=== PATIENT | male | born 1950 | race Caucasian/White ===

== ENCOUNTER 2017-07-24 09:59 | Day surgery (SDC) | payer MEDICARE, OTHER ==
[~2017-07-24] VITALS: Ht 172.7 cm; Wt 115.3 kg
[2017-07-24 09:57] LABS: Prothrombin Time Results 10.4 Sec (9.7-11.5)
[~2017-07-24 09:59] MED LIST: ALBU8HFA2 INH; ALBU90OI; ALBU90OI INH; ALFU10; ALLO100; ALLO100 PO; AMLO5 PO; ASPI81CH; AZAT50 PO; AZIT250; AZIT250 PO; Allopurinol100 MG PO; Aspirin EC81 MG; BECLNI16.8 INH; BENADRYL25 MG PO; BREO ELLIPTA 11 EACH; BUME1; BUME2; BUME2 PO; BYETTA; CALCAVITD PO; CALCAVITDA PO; CHOL10002; CYCL0.05OP; Cialis2.5 MG; DOXE0.5; DOXE0.5 PO; ENOX40I SC; EPLE25; EPLE25 PO; FLUO.1OPSO BOTHEYES; FLUT.05NI; Flonase 0.05% N16 GM; Flovent 110 MCG12 GM; GABA300; GABA300 PO; GLIM2; GLIP5; GLIP5 PO; HYDACE10B; HYDACE10B PO; HYDMOR2 PO; HYDSUL200; Hydrochlorothia50 MG PO; Hydroxychloroq200 MG PO; INSLI100I; INSLI100I SC; INSLI100I SUBQ; INSULANI SC; INSULANI SUBQ; INSULANPEN; ISOD40ER PO; K-Dur 20 meq T20 MEQ PO; K-Dur20 MEQ; LISI20; LIVALO2 MG PO; LOTE.5SUSP; LUMIGAN2.5 ML; Lasix40 MG; MAGCHL64ER PO; MELA3; MELA3 PO; METF500; METF500C; METO2.5 PO; MYCOPHENOLATE500 MG PO; Metoclopramide H5 MG; Mucinex1200 MG; NAPR220; NAPR220 PO; NAPR500 PO; Norco 10-325 T1 EACH; Novolog Fl100 UNIT/1; OMEP20ER PO; OMEP40CA12 PO; OXYACE7.5T PO; OXYC5 PO; Omeprazole20 M1; POTA20PAC; POTCHL20ER PO; PRAV20 PO; PRED1; PRED10 PO; PRED5; PRED5 PO; PREVASTATIN PO; PROM25 PO; PSEU120ER; Pravachol40 MG; Pred Forte1 ML; Prednisone5 MG PO; QVAR7.3 G1; QVAR7.3 G1 INH; RAMI2.5; RAMI2.5 PO; ROSU10TA; RXPROM25 PO; RXSULTRIDS PO; Rituxan10 MG/ML; SILDENAFIL20 MG PO; SPIR25 PO; SULFAMETHOXAZOLE-TMP; SULTRIDS PO; SYSTANE BALANCE10 ML; Sulfamethoxazo1 EAC4; Sulfamethoxazo1 EAC4 PO; TADA10TA; TARKA; TRAM50 PO; VERA240ER; Voltaren100 GM; [UNRECOGNIZED DRUG - OTHER]
== END 2017-07-24 13:01 | disposition home or self-care (01) ==
LOC: ORSCSDS 09:59
PROVIDERS: Internal Medicine Gastroenterology
PROC: 0D758ZZ Dilation of Esophagus, Via Natural or Artificial Opening Endoscopic (ICD-10-PCS; principal; 2017-07-24 12:00)
DX: R13.10 Dysphagia, unspecified (principal); K74.60 Unspecified cirrhosis of liver; K44.9 Diaphragmatic hernia without obstruction or gangrene; E78.5 Hyperlipidemia, unspecified; G47.33 Obstructive sleep apnea (adult) (pediatric); E11.9 Type 2 diabetes mellitus without complications; J45.909 Unspecified asthma, uncomplicated; N18.3 Chronic kidney disease, stage 3 (moderate); G47.30 Sleep apnea, unspecified; Z87.891 Personal history of nicotine dependence; K21.9 Gastro-esophageal reflux disease without esophagitis; Z79.4 Long term (current) use of insulin; Z79.899 Other long term (current) drug therapy
CPT/HCPCS: 36415; 82105; 82947; 85610; J2250; J7120

== ENCOUNTER → 2017-08-18 | Outpatient (CLI) | payer MEDICARE, OTHER ==
[2017-08-19 10:27] LABS: Protein, Urine Quantitative 44.4 mg/dL (0.0-11.9)
== END ==
LOC: LAB SHORT 07:55 → OLS 07:55
PROVIDERS: Internal Medicine Nephrology
DX: N18.3 Chronic kidney disease, stage 3 (moderate) (principal); D63.1 Anemia in chronic kidney disease; N25.81 Secondary hyperparathyroidism of renal origin; E55.9 Vitamin D deficiency, unspecified; E78.00 Pure hypercholesterolemia, unspecified; R76.9 Abnormal immunological finding in serum, unspecified; R94.5 Abnormal results of liver function studies; R94.6 Abnormal results of thyroid function studies
CPT/HCPCS: 81050; 82043; 84156

== ENCOUNTER 2017-12-18 11:33 | Day surgery (SDC) | payer MEDICARE, OTHER ==
[~2017-12-18] VITALS: Ht 172.7 cm; Wt 114.8 kg
== END 2017-12-18 14:05 | disposition home or self-care (01) ==
LOC: ORSCSDS 11:33
PROVIDERS: Ophthalmology
PROC: 08RJ3JZ Replacement of Right Lens with Synthetic Substitute, Percutaneous Approach (ICD-10-PCS; principal; 2017-12-18 13:30)
DX: H25.11 Age-related nuclear cataract, right eye (principal); E11.36 Type 2 diabetes mellitus with diabetic cataract; E11.22 Type 2 diabetes mellitus with diabetic chronic kidney disease; I12.9 Hypertensive chronic kidney disease with stage 1 through stage 4 chronic kidney disease, or unspecified chronic kidney disease; N18.9 Chronic kidney disease, unspecified; E78.5 Hyperlipidemia, unspecified; G47.33 Obstructive sleep apnea (adult) (pediatric); K75.81 Nonalcoholic steatohepatitis (NASH); Z87.891 Personal history of nicotine dependence; Z79.4 Long term (current) use of insulin; Z79.899 Other long term (current) drug therapy
CPT/HCPCS: 82947; J2250; J3010; J7120; V2632

== ENCOUNTER 2018-08-06 08:36 | Day surgery (SDC) | payer MEDICARE, OTHER ==
[~2018-08-06] VITALS: Ht 172.7 cm; Wt 115.9 kg
[~2018-08-06 08:36] MED LIST changes: +ACETAMINOPHEN500 MG PO; +ALKA-SELTZER D1 EACH PO; +BREO ELLIPTA 11 EACH INH; +CALCIUM + D3 E1 EACH PO; +CALCIUM 1,0001 EACH PO; +CYCL0.05OP BOTHEYES; +Cialis2.5 MG PO; +FLONASE SENSIM5.9 ML NS; +GABA600 PO; +GLIP10 PO; +HYDSUL200 PO; +INSULANPEN SC; +LOTEMAX3.5 GM BOTHEYES; +LOTEMAX3.5 GM IO; +LUMIGAN2.5 ML BOTHEYES; +METO5 PO; +NASACORT10.8 ML; +NEOPOLBACB; +NOVOLOG FL100 UNIT/1 SC; +Neurontin 300300 MG PO; +Norco 10-325 T1 EACH PO; +Novolog100 UNIT/1 SQ; +Omeprazole20 M1 PO; +PRED1 PO; +SILD50TA PO; +SYSTANE BALANCE10 ML OP; +VITAMIN B12-FO1 EACH PO; +VOLTAREN100 GM TOP; +ZOLP5 PO; +Zegerid 40 MG1 EACH PO; +Zocor20 MG PO
== END 2018-08-06 10:07 | disposition home or self-care (01) ==
LOC: ORSCSDS 08:36
PROVIDERS: Internal Medicine Gastroenterology
PROC: 0DJ08ZZ Inspection of Upper Intestinal Tract, Via Natural or Artificial Opening Endoscopic (ICD-10-PCS; principal; 2018-08-06 09:45)
DX: I85.00 Esophageal varices without bleeding (principal); K75.81 Nonalcoholic steatohepatitis (NASH); K74.60 Unspecified cirrhosis of liver; E11.22 Type 2 diabetes mellitus with diabetic chronic kidney disease; I12.9 Hypertensive chronic kidney disease with stage 1 through stage 4 chronic kidney disease, or unspecified chronic kidney disease; N18.3 Chronic kidney disease, stage 3 (moderate); E78.5 Hyperlipidemia, unspecified; K21.9 Gastro-esophageal reflux disease without esophagitis; J45.909 Unspecified asthma, uncomplicated; G47.33 Obstructive sleep apnea (adult) (pediatric); Z87.891 Personal history of nicotine dependence; Z79.4 Long term (current) use of insulin; Z79.899 Other long term (current) drug therapy
CPT/HCPCS: 82947; J2704; J7120

== ENCOUNTER 2020-02-03 10:38 | Day surgery (SDC) | payer MEDICARE, OTHER ==
[~2020-02-03] VITALS: Ht 172.7 cm; Wt 106.5 kg
[~2020-02-03 10:38] MED LIST changes: +BASAGLAR K100 UNIT/1; +Bumetanide2 MG PO; +EZET10; +EZET10 PO; +NOVOLOG100 UNIT/3 SQ; +Norco 5-325 Ta1 EACH PO; +VICTOZA 2-0.6 MG/0.1 SC
[2020-02-03] MEDS ORDERED: SULTRISS (11:17)
== END 2020-02-03 13:15 | disposition home or self-care (01) ==
LOC: ORSCSDS 10:38
PROVIDERS: Internal Medicine Gastroenterology
PROC: 0DBN8ZX Excision of Sigmoid Colon, Via Natural or Artificial Opening Endoscopic, Diagnostic (ICD-10-PCS; principal; 2020-02-03 12:00)
PROC: 0DBL8ZX Excision of Transverse Colon, Via Natural or Artificial Opening Endoscopic, Diagnostic (ICD-10-PCS; principal; 2020-02-03 12:00)
PROC: 0DB58ZX Excision of Esophagus, Via Natural or Artificial Opening Endoscopic, Diagnostic (ICD-10-PCS; principal; 2020-02-03 12:00)
PROC: 0DBK8ZX Excision of Ascending Colon, Via Natural or Artificial Opening Endoscopic, Diagnostic (ICD-10-PCS; principal; 2020-02-03 12:00)
DX: K74.60 Unspecified cirrhosis of liver (principal); Z13.810 Encounter for screening for upper gastrointestinal disorder; K21.9 Gastro-esophageal reflux disease without esophagitis; Z86.010 Personal history of colon polyps; K76.6 Portal hypertension; K31.89 Other diseases of stomach and duodenum; D12.2 Benign neoplasm of ascending colon; D12.3 Benign neoplasm of transverse colon; D12.5 Benign neoplasm of sigmoid colon; B37.81 Candidal esophagitis; K44.9 Diaphragmatic hernia without obstruction or gangrene; K57.30 Diverticulosis of large intestine without perforation or abscess without bleeding; K64.4 Residual hemorrhoidal skin tags; I10 Essential (primary) hypertension; E78.5 Hyperlipidemia, unspecified; E11.9 Type 2 diabetes mellitus without complications; G47.33 Obstructive sleep apnea (adult) (pediatric); N18.30 Chronic kidney disease, stage 3 unspecified; J45.909 Unspecified asthma, uncomplicated; Z87.891 Personal history of nicotine dependence; Z79.4 Long term (current) use of insulin; Z79.899 Other long term (current) drug therapy
CPT/HCPCS: 82947; 88305; 88342; J2704; J7120

== ENCOUNTER 2021-03-02 08:21 | Day surgery (SDC) | payer MEDICARE, OTHER ==
[~2021-03-02] VITALS: Ht 172.7 cm; Wt 98.7 kg
[~2021-03-02 08:21] MED LIST changes: +SULTRISS
[2021-03-02] MEDS ORDERED: NOVOLIN R100 UNIT/2 (09:31)
[2021-03-02] MEDS ORDERED: OXYB5 (09:34)
== END 2021-03-02 11:49 | disposition home or self-care (01) ==
LOC: ORSCSDS 08:21
DX: Z12.11 Encounter for screening for malignant neoplasm of colon (principal); D12.2 Benign neoplasm of ascending colon; D12.3 Benign neoplasm of transverse colon; K57.30 Diverticulosis of large intestine without perforation or abscess without bleeding; K64.4 Residual hemorrhoidal skin tags; Z86.010 Personal history of colon polyps; K74.60 Unspecified cirrhosis of liver; Z13.810 Encounter for screening for upper gastrointestinal disorder; G47.33 Obstructive sleep apnea (adult) (pediatric); E78.5 Hyperlipidemia, unspecified; E11.22 Type 2 diabetes mellitus with diabetic chronic kidney disease; I12.9 Hypertensive chronic kidney disease with stage 1 through stage 4 chronic kidney disease, or unspecified chronic kidney disease; N18.30 Chronic kidney disease, stage 3 unspecified; Z87.891 Personal history of nicotine dependence; Z79.4 Long term (current) use of insulin; Z79.899 Other long term (current) drug therapy
CPT/HCPCS: 82947; 88305; J2001; J2704; J7120

== ENCOUNTER → 2021-08-31 | Outpatient (CLI) | payer MEDICARE ==
[~2021-08-31] MED LIST changes: +NOVOLIN R100 UNIT/2; +OXYB5
[2021-08-31 19:45] LABS: Creatinine Urine 33.1 mg/dL (27.00-270.00); Protein, Urine Quantitative 115.3 mg/dL (0.0-11.9)
== END | disposition home or self-care (01) ==
LOC: LAB 15:00 → LAB SHORT 15:00
PROVIDERS: Internal Medicine Nephrology
DX: N18.30 Chronic kidney disease, stage 3 unspecified (principal); D63.1 Anemia in chronic kidney disease; E83.51 Hypocalcemia; N25.81 Secondary hyperparathyroidism of renal origin; E78.00 Pure hypercholesterolemia, unspecified; R76.9 Abnormal immunological finding in serum, unspecified; R94.5 Abnormal results of liver function studies; R94.6 Abnormal results of thyroid function studies
CPT/HCPCS: 81050; 82043; 82570; 84156

== ENCOUNTER 2022-03-08 09:12 | Day surgery (SDC) | payer MEDICARE ==
[~2022-03-08] VITALS: Ht 167.6 cm; Wt 106.7 kg
--- NOTE | 2022-03-08 11:32 | NUR ---
03/08/22 [address] GUTIERRES; SEE ANETHESIA RECORDS.
--- NOTE | 2022-03-08 14:20 | NUR ---
Discharge instructions reviewed with patient. Patient verbalizes understanding. Copy given to patient to take home. Discharged via wheelchair to private car for ride home. Patient States Post-Procedure ride home has been arranged.
== END 2022-03-08 22:53 | disposition home or self-care (01) ==
LOC: ORSCMMR 09:12 → ORSCSDS 10:15 → ORSCMMR 22:53
PROVIDERS: Internal Medicine Gastroenterology
PROC: 0DJ08ZZ Inspection of Upper Intestinal Tract, Via Natural or Artificial Opening Endoscopic (ICD-10-PCS; principal; 2022-03-08 11:00)
PROC: 0DBL8ZX Excision of Transverse Colon, Via Natural or Artificial Opening Endoscopic, Diagnostic (ICD-10-PCS; principal; 2022-03-08 11:00)
DX: Z12.11 Encounter for screening for malignant neoplasm of colon (principal); D12.3 Benign neoplasm of transverse colon; Z13.810 Encounter for screening for upper gastrointestinal disorder; K74.60 Unspecified cirrhosis of liver; K75.81 Nonalcoholic steatohepatitis (NASH); K31.84 Gastroparesis; Z86.010 Personal history of colon polyps; K57.30 Diverticulosis of large intestine without perforation or abscess without bleeding; K64.8 Other hemorrhoids; I12.9 Hypertensive chronic kidney disease with stage 1 through stage 4 chronic kidney disease, or unspecified chronic kidney disease; E11.22 Type 2 diabetes mellitus with diabetic chronic kidney disease; N18.4 Chronic kidney disease, stage 4 (severe); Z79.4 Long term (current) use of insulin; E11.40 Type 2 diabetes mellitus with diabetic neuropathy, unspecified; G47.33 Obstructive sleep apnea (adult) (pediatric); Z87.891 Personal history of nicotine dependence; J45.909 Unspecified asthma, uncomplicated; Z79.899 Other long term (current) drug therapy; F32.A Depression, unspecified; E66.9 Obesity, unspecified; Z68.38 Body mass index [BMI] 38.0-38.9, adult
CPT/HCPCS: 82947; 88305; J2704; J7120

== ENCOUNTER → 2022-03-24 | Outpatient (CLI) | payer MEDICARE ==
[2022-03-25 20:12] LABS: Protein, Urine Quantitative 249.2 mg/dL (0.0-11.9)
== END | disposition home or self-care (01) ==
LOC: LAB SHORT 08:00
PROVIDERS: Internal Medicine Nephrology
DX: N18.30 Chronic kidney disease, stage 3 unspecified (principal); D63.1 Anemia in chronic kidney disease; N25.81 Secondary hyperparathyroidism of renal origin; E55.9 Vitamin D deficiency, unspecified; E78.00 Pure hypercholesterolemia, unspecified; R76.9 Abnormal immunological finding in serum, unspecified; R94.5 Abnormal results of liver function studies; R94.6 Abnormal results of thyroid function studies
CPT/HCPCS: 81050; 82043; 82570; 84156

== ENCOUNTER 2022-04-09 16:43 | Inpatient (IN) | payer MEDICARE ==
[~2022-04-09] VITALS: Ht 172.7 cm; Wt 102.9 kg
[2022-04-09 17:05] LABS: Calcium, Ionized (POC) 1.23 mmol/L (1.10-1.46); Chloride (POC) 112 mmol/L (98-108); Creatinine (POC) 1.7 mg/dL (0.8-1.3); Glucose (ISTAT POC) 331 mg/dL (70-99); Hemoglobin (POC) 13.9 g/dL (13.5-17.5); Potassium (POC) 5.8 mmol/L (3.5-5.5); Sodium (POC) 138 mmol/L (135-148); Total CO2 (POC) 18 mmol/L (21-32)
[2022-04-09 17:15] LABS: BASOPHILS ABSOLUTE AUTO 0.07 K/mm3 (0.00-0.23); BASOPHILS PERCENT AUTO 1 % (0-2); EOSINOPHILS ABSOLUTE AUTO 0.04 K/mm3 (0.00-0.68); EOSINOPHILS PERCENT AUTO 0 % (0-6); Hematocrit 40.4 % (37.0-53.0); Hemoglobin 13.5 g/dL (13.5-17.5); IMMATURE GRAN ABSOLUTE AUTO 0.09 K/mm3 (0.00-0.10); IMMATURE GRAN PERCENT AUTO 1 % (0-1); LYMPHOCYTES ABSOLUTE AUTO 2.42 K/mm3 (0.84-5.20); LYMPHOCYTES PERCENT AUTO 25 % (21-46); MONOCYTES ABSOLUTE AUTO 0.55 K/mm3 (0.16-1.47); MONOCYTES PERCENT AUTO 6 % (4-13); Mean Corpuscular HGB 31.2 pg (26.0-34.0); Mean Corpuscular HGB Conc 33.4 g/dL (31.5-36.5); Mean Corpuscular Volume 93 fL (80-100); Mean Platelet Volume 9.8 fL (9.1-12.4); NEUTROPHILS ABSOLUTE AUTO 6.53 K/mm3 (1.96-9.15); NEUTROPHILS PERCENT AUTO 67 % (41-73); Platelet Count 435 K/mm3 (150-400); RDW Coefficient Variation 14.6 % (11.7-14.2); RDW Standard Deviation 49.6 fL (35.1-46.3); Red Blood Cell Count 4.33 M/mm3 (4.30-5.90)
[2022-04-09 17:30] LABS: Calcium, Ionized (POC) 1.47 mmol/L (1.10-1.46); Chloride (POC) 111 mmol/L (98-108); Creatinine (POC) 1.7 mg/dL (0.8-1.3); Glucose (ISTAT POC) 438 mg/dL (70-99); Hemoglobin (POC) 12.9 g/dL (13.5-17.5); Potassium (POC) 6.4 mmol/L (3.5-5.5); Sodium (POC) 136 mmol/L (135-148); Total CO2 (POC) 19 mmol/L (21-32)
[2022-04-09 17:34] LABS: Free Thyroxine 0.8 ng/dL (0.70-1.60); Magnesium, Blood 1.5 mg/dL (1.6-2.4)
[2022-04-09 17:37] LABS: Albumin, Blood 2.9 g/dL (3.4-5.0); Albumin/Globulin Ratio 0.8 (0.8-1.8); Bilirubin, Total 0.4 mg/dL (0.1-1.0); Bun/Creatinine Ratio 23.3 (12.0-20.0); Calcium, Blood 9.4 mg/dL (8.5-10.1); Creatinine, Blood 1.59 mg/dL (0.60-1.20); Globulin, Blood 3.5 g/dL (2.2-4.0); Potassium, Blood 5.8 mmol/L (3.5-5.5); Thyroid Stimulating Hormone 1.16 uIU/mL (0.360-4.800); Total Protein, Blood 6.4 g/dL (6.4-8.2)
[2022-04-09] MEDS ORDERED: GABA300 PO (18:59)
[2022-04-09] MEDS ORDERED: GABAPENTIN600 MG PO (18:59)
[2022-04-09] MEDS ORDERED: KERENDIA10 MG PO (19:00)
[2022-04-09 20:59] LABS: Bun/Creatinine Ratio 21.5 (12.0-20.0); Calcium, Blood 9.4 mg/dL (8.5-10.1); Creatinine, Blood 1.35 mg/dL (0.60-1.20)
[2022-04-09 21:11] LABS: Potassium, Blood 3.7 mmol/L (3.5-5.5)
[2022-04-09] MEDS ORDERED: CALC.25 PO (22:24)
[2022-04-09] MEDS ORDERED: [UNRECOGNIZED DRUG - OTHER] PO (22:25)
[2022-04-10 01:37] LABS: Bun/Creatinine Ratio 20.8 (12.0-20.0); Calcium, Blood 10.7 mg/dL (8.5-10.1); Creatinine, Blood 1.59 mg/dL (0.60-1.20); Potassium, Blood 4.3 mmol/L (3.5-5.5)
--- NOTE | 2022-04-10 05:20 | NUR ---
New ER admit, A/Ox4 and slightly [place]. 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 No episodes of bradycardia, syncopy or CP/pressure. VSS on RA. 1+ pitting edema to ble. Patient reports some urinary incontinence and requested condom cath, which is draining clear/yellow urine. No acute changes. Will report to david YE.
[2022-04-10 05:50] LABS: Bun/Creatinine Ratio 19.4 (12.0-20.0); Creatinine, Blood 1.55 mg/dL (0.60-1.20); Magnesium, Blood 1.8 mg/dL (1.6-2.4); Potassium, Blood 3.8 mmol/L (3.5-5.5)
== END 2022-04-10 14:47 | disposition home or self-care (01) | DRG 641 ==
LOC: ER 16:43 → PCU 22:03
PROVIDERS: Student in an Organized Health Care Education/Training Program; ADMIT Internal Medicine
DX: E87.5 Hyperkalemia (principal); I13.0 Hypertensive heart and chronic kidney disease with heart failure and stage 1 through stage 4 chronic kidney disease, or unspecified chronic kidney disease; M31.30 Wegener's granulomatosis without renal involvement; I50.20 Unspecified systolic (congestive) heart failure; N17.9 Acute kidney failure, unspecified; I44.2 Atrioventricular block, complete; R00.1 Bradycardia, unspecified; E11.22 Type 2 diabetes mellitus with diabetic chronic kidney disease; N18.9 Chronic kidney disease, unspecified; I20.9 Angina pectoris, unspecified; E78.5 Hyperlipidemia, unspecified; I08.0 Rheumatic disorders of both mitral and aortic valves; I95.9 Hypotension, unspecified; T46.4X5A Adverse effect of angiotensin-converting-enzyme inhibitors, initial encounter; E87.6 Hypokalemia; E83.42 Hypomagnesemia; R94.31 Abnormal electrocardiogram [ECG] [EKG]; R00.0 Tachycardia, unspecified; Z96.643 Presence of artificial hip joint, bilateral; Z96.652 Presence of left artificial knee joint; Z88.8 Allergy status to other drugs, medicaments and biological substances; Z79.899 Other long term (current) drug therapy; Z79.52 Long term (current) use of systemic steroids; Z79.51 Long term (current) use of inhaled steroids; Z79.4 Long term (current) use of insulin; Z86.79 Personal history of other diseases of the circulatory system; Z87.891 Personal history of nicotine dependence; Z98.890 Other specified postprocedural states
CPT/HCPCS: 36415; 71045; 80047; 80048; 80053; 82947; 83735; 84132; 84439; 84443; 84484; 85014; 85025; 92953; 93005; 93010; 93246; 94640; 94664; 96365-59; 96366-59; 96367-59; 96375-59; 99291-25; A9270; C8929; J0461; J1650; J1815; J3475; J7030; J7512; J7799; Q9957

== ENCOUNTER → 2022-04-24 | Outpatient (CLI) | payer MEDICARE ==
[~2022-04-24] MED LIST changes: +CALC.25 PO; +GABAPENTIN600 MG PO; +KERENDIA10 MG PO; +[UNRECOGNIZED DRUG - OTHER] PO
[2022-04-24 21:14] LABS: Adenovirus F 40/41 Not Detected (NOT DETECT); Astrovirus Not Detected (NOT DETECT); Campylobacter Sp Not Detected (NOT DETECT); Cryptosporidium Not Detected (NOT DETECT); Cyclospora Cayetanensis Not Detected (NOT DETECT); E. Coli O157 Not Detected (NOT DETECT); Entamoeba Histolytica Not Detected (NOT DETECT); Enteroaggregative E. coli-EAEC Not Detected (NOT DETECT); Enteropathogenic E. coli-EPEC Not Detected (NOT DETECT); Enterotoxigenic E. coli-ETEC Not Detected (NOT DETECT); Giardia Lamblia Not Detected (NOT DETECT); Norovirus GI/GII Not Detected (NOT DETECT); Plesiomonas Shigelloides Not Detected (NOT DETECT); Rotavirus A Not Detected (NOT DETECT); Salmonella Sp Not Detected (NOT DETECT); Sapovirus Not Detected (NOT DETECT); Shiga Toxin-prod E. coli-STEC Not Detected (NOT DETECT); Shigella/Enteroin E. coli-EIEC Not Detected (NOT DETECT); Vibrio Cholerae Not Detected (NOT DETECT); Vibrio Sp Not Detected (NOT DETECT); Yersinia Enterocolitica Not Detected (NOT DETECT)
== END | disposition home or self-care (01) ==
LOC: LAB SHORT 11:10 → LAB 11:10
PROVIDERS: Physician Assistant Medical
DX: R19.7 Diarrhea, unspecified (principal)
CPT/HCPCS: 87507

== ENCOUNTER → 2022-05-14 | Outpatient (CLI) | payer MEDICARE ==
[2022-05-14 19:34] LABS: BASOPHILS ABSOLUTE AUTO 0.05 K/mm3 (0.00-0.23); BASOPHILS PERCENT AUTO 1 % (0-2); EOSINOPHILS ABSOLUTE AUTO 0.05 K/mm3 (0.00-0.68); EOSINOPHILS PERCENT AUTO 1 % (0-6); Hemoglobin 12.8 g/dL (13.5-17.5); IMMATURE GRAN ABSOLUTE AUTO 0.02 K/mm3 (0.00-0.10); IMMATURE GRAN PERCENT AUTO 0 % (0-1); LYMPHOCYTES ABSOLUTE AUTO 1.41 K/mm3 (0.84-5.20); LYMPHOCYTES PERCENT AUTO 23 % (21-46); MONOCYTES ABSOLUTE AUTO 0.82 K/mm3 (0.16-1.47); MONOCYTES PERCENT AUTO 13 % (4-13); Mean Corpuscular HGB 29.8 pg (26.0-34.0); Mean Corpuscular HGB Conc 33.7 g/dL (31.5-36.5); Mean Corpuscular Volume 89 fL (80-100); Mean Platelet Volume 10.5 fL (9.1-12.4); NEUTROPHILS ABSOLUTE AUTO 3.93 K/mm3 (1.96-9.15); NEUTROPHILS PERCENT AUTO 63 % (41-73); Platelet Count 296 K/mm3 (150-400); RDW Coefficient Variation 14.2 % (11.7-14.2); RDW Standard Deviation 45.8 fL (35.1-46.3); Red Blood Cell Count 4.29 M/mm3 (4.30-5.90); White Blood Cell Count 6.28 K/mm3 (4.00-11.30)
== END | disposition home or self-care (01) ==
LOC: LAB SHORT 17:15
PROVIDERS: Nurse Practitioner Family
DX: R50.9 Fever, unspecified (principal)
CPT/HCPCS: 85025; 87086

== ENCOUNTER → 2022-06-13 | Outpatient (CLI) | payer MEDICARE ==
[2022-06-13 17:22] LABS: BASOPHILS ABSOLUTE AUTO 0.03 K/mm3 (0.00-0.23); BASOPHILS PERCENT AUTO 1 % (0-2); EOSINOPHILS ABSOLUTE AUTO 0.01 K/mm3 (0.00-0.68); EOSINOPHILS PERCENT AUTO 0 % (0-6); Hematocrit 35.2 % (37.0-53.0); Hemoglobin 11.9 g/dL (13.5-17.5); IMMATURE GRAN ABSOLUTE AUTO 0.06 K/mm3 (0.00-0.10); IMMATURE GRAN PERCENT AUTO 1 % (0-1); LYMPHOCYTES ABSOLUTE AUTO 0.68 K/mm3 (0.84-5.20); LYMPHOCYTES PERCENT AUTO 13 % (21-46); MONOCYTES ABSOLUTE AUTO 0.38 K/mm3 (0.16-1.47); MONOCYTES PERCENT AUTO 7 % (4-13); Mean Corpuscular HGB 29.2 pg (26.0-34.0); Mean Corpuscular HGB Conc 33.8 g/dL (31.5-36.5); Mean Corpuscular Volume 86 fL (80-100); Mean Platelet Volume 9.5 fL (9.1-12.4); NEUTROPHILS ABSOLUTE AUTO 4.07 K/mm3 (1.96-9.15); NEUTROPHILS PERCENT AUTO 78 % (41-73); Platelet Count 386 K/mm3 (150-400); RDW Coefficient Variation 14.9 % (11.7-14.2); RDW Standard Deviation 47.1 fL (35.1-46.3); Red Blood Cell Count 4.08 M/mm3 (4.30-5.90); White Blood Cell Count 5.23 K/mm3 (4.00-11.30)
[2022-06-13 17:33] LABS: Albumin, Blood 2.4 g/dL (3.4-5.0); Albumin/Globulin Ratio 0.6 (0.8-1.8); Bilirubin, Total 0.3 mg/dL (0.1-1.0); Bun/Creatinine Ratio 18.8 (12.0-20.0); Calcium, Blood 9.9 mg/dL (8.5-10.1); Creatinine, Blood 1.65 mg/dL (0.60-1.20); Globulin, Blood 4.2 g/dL (2.2-4.0); Potassium, Blood 3.7 mmol/L (3.5-5.5); Total Protein, Blood 6.6 g/dL (6.4-8.2)
== END | disposition home or self-care (01) ==
LOC: LAB SHORT 17:16
PROVIDERS: Physician Assistant
DX: R50.9 Fever, unspecified (principal); R06.02 Shortness of breath
CPT/HCPCS: 80053; 83880; 84484; 85025

== ENCOUNTER → 2022-06-26 | Outpatient (CLI) | payer MEDICARE ==
[2022-06-26 20:49] LABS: Protein, Urine Quantitative 242.7 mg/dL (0.0-11.9)
== END | disposition home or self-care (01) ==
LOC: LAB 08:30 → LAB SHORT 08:30
PROVIDERS: Internal Medicine Nephrology
DX: N18.30 Chronic kidney disease, stage 3 unspecified (principal); D63.1 Anemia in chronic kidney disease; N25.81 Secondary hyperparathyroidism of renal origin; E78.00 Pure hypercholesterolemia, unspecified; R76.9 Abnormal immunological finding in serum, unspecified; R94.5 Abnormal results of liver function studies; R94.6 Abnormal results of thyroid function studies
CPT/HCPCS: 81050; 84156

== ENCOUNTER → 2022-09-12 | Outpatient (CLI) | payer MEDICARE ==
[2022-09-12 11:11] LABS: Free Thyroxine 0.72 ng/dL (0.70-1.60); Percent Saturation 9.5 % (20.0-50.0); Thyroid Stimulating Hormone 0.476 uIU/mL (0.360-4.800)
== END | disposition home or self-care (01) ==
LOC: LAB 09:40 → LAB SHORT 09:40
PROVIDERS: Nurse Practitioner
DX: D64.9 Anemia, unspecified (principal); E53.8 Deficiency of other specified B group vitamins; M31.30 Wegener's granulomatosis without renal involvement
CPT/HCPCS: 82607; 82728; 82746; 83540; 83550; 84238; 84439; 84443

== ENCOUNTER 2022-12-17 08:58 | Emergency (ER) | payer MEDICARE ==
[~2022-12-17] VITALS: Ht 172.7 cm; Wt 88.9 kg
[2022-12-17 09:40] LABS: BASOPHILS ABSOLUTE AUTO 0.02 K/mm3 (0.00-0.23); BASOPHILS PERCENT AUTO 0 % (0-2); EOSINOPHILS ABSOLUTE AUTO 0.02 K/mm3 (0.00-0.68); EOSINOPHILS PERCENT AUTO 0 % (0-6); Hematocrit 32.8 % (37.0-53.0); Hemoglobin 10.8 g/dL (13.5-17.5); IMMATURE GRAN ABSOLUTE AUTO 0.08 K/mm3 (0.00-0.10); IMMATURE GRAN PERCENT AUTO 1 % (0-1); LYMPHOCYTES ABSOLUTE AUTO 0.25 K/mm3 (0.84-5.20); LYMPHOCYTES PERCENT AUTO 3 % (21-46); MONOCYTES ABSOLUTE AUTO 0.36 K/mm3 (0.16-1.47); MONOCYTES PERCENT AUTO 4 % (4-13); Mean Corpuscular HGB 27.6 pg (26.0-34.0); Mean Corpuscular HGB Conc 32.9 g/dL (31.5-36.5); Mean Corpuscular Volume 84 fL (80-100); Mean Platelet Volume 9.9 fL (9.1-12.4); NEUTROPHILS ABSOLUTE AUTO 8.96 K/mm3 (1.96-9.15); NEUTROPHILS PERCENT AUTO 93 % (41-73); Platelet Count 357 K/mm3 (150-400); RDW Coefficient Variation 17.9 % (11.7-14.2); RDW Standard Deviation 54.8 fL (35.1-46.3); Red Blood Cell Count 3.91 M/mm3 (4.30-5.90); White Blood Cell Count 9.69 K/mm3 (4.00-11.30)
[2022-12-17 10:17] LABS: Albumin, Blood 2.3 g/dL (3.4-5.0); Albumin/Globulin Ratio 0.6 (0.8-1.8); BASOPHILS PERCENT MAN 0 % (0-2); Bilirubin, Total 0.4 mg/dL (0.1-1.0); Bun/Creatinine Ratio 25.7 (12.0-20.0); Calcium, Blood 9.4 mg/dL (8.5-10.1); Creatinine, Blood 1.36 mg/dL (0.60-1.20); EOSINOPHILS PERCENT MAN 0 % (0-6); Globulin, Blood 3.7 g/dL (2.2-4.0); LYMPHOCYTES ABSOLUTE MAN 0.58 K/mm3 (0.84-5.20); LYMPHOCYTES PERCENT MAN 6 % (21-46); MONOCYTES ABSOLUTE MAN 0.09 K/mm3 (0.16-1.47); MONOCYTES PERCENT MAN 1 % (4-13); Magnesium, Blood 1.5 mg/dL (1.6-2.4); NEUTROPHILS ABSOLUTE MAN 9.01 K/mm3 (1.96-9.15); Potassium, Blood 3.3 mmol/L (3.5-5.5); SEG NEUTROPHILS PERCENT MAN 93 % (41-73); TOTAL CELLS COUNTED 100
[2022-12-17 10:55] LABS: Source, Urine Clean Catch
[2022-12-17 11:00] VITALS: BP 114/57
[2022-12-17 11:01] LABS: Appearance, Urine Clear (Clear); Bilirubin, Urine Neg (Neg); Blood, Urine 1+ (Neg); Color, Urine Yellow (P-Yellow); Glucose Qualitative, Urine 2+ (Neg); Ketones, Urine Neg (Neg); Leukocyte Esterase, Urine Neg (Neg); Nitrite, Urine Neg (Neg); Protein, Urine 3+ (Neg); Urobilinogen, Urine NORM (Normal)
[2022-12-17 11:15] LABS: Bacteria Not Seen /hpf; Red Blood Cells, Urine 0-2 /hpf (0-2); Squamous Epithelial Cells Rare /hpf (Few); White Blood Cells, Urine Not Seen /hpf (0-5)
== END 2022-12-17 11:55 | disposition home or self-care (01) ==
LOC: ER 08:58
PROVIDERS: Student in an Organized Health Care Education/Training Program
DX: U07.1 COVID-19 (principal); E86.0 Dehydration; D84.9 Immunodeficiency, unspecified; Z88.6 Allergy status to analgesic agent; Z88.8 Allergy status to other drugs, medicaments and biological substances; Z79.899 Other long term (current) drug therapy; Z79.52 Long term (current) use of systemic steroids; Z79.4 Long term (current) use of insulin; Z87.891 Personal history of nicotine dependence; I12.9 Hypertensive chronic kidney disease with stage 1 through stage 4 chronic kidney disease, or unspecified chronic kidney disease; N18.9 Chronic kidney disease, unspecified; E11.22 Type 2 diabetes mellitus with diabetic chronic kidney disease; E78.5 Hyperlipidemia, unspecified
CPT/HCPCS: 80053; 81001; 83605; 83735; 85025; 93005; 93010; 96360; 99285-25; J7030

== ENCOUNTER 2023-03-10 07:04 | Day surgery (SDC) | payer MEDICARE ==
[~2023-03-10] VITALS: Ht 172.7 cm; Wt 92.3 kg
[2023-03-10] MEDS ORDERED: Aspir 8181 MG PO (08:25)
[2023-03-10] MEDS ORDERED: HUMULIN N100 UNIT/6 SC (08:28)
[2023-03-10] MEDS ORDERED: GEMTESA75 MG PO (08:28)
[2023-03-10] MEDS ORDERED: GUAI600T33 PO (08:28)
[2023-03-10] MEDS ORDERED: LOPE2C PO (08:29)
[2023-03-10] MEDS ORDERED: METO5 PO (08:30)
[2023-03-10] MEDS ORDERED: PRAVASTATIN SOD40 MG PO (08:31)
[2023-03-10] MEDS ORDERED: SILD50TA PO (08:31)
[2023-03-10] MEDS ORDERED: TAMS.4ER PO (08:31)
[2023-03-10 08:34] VITALS: BP 119/76
[2023-03-10 09:52] VITALS: BP 131/77
[2023-03-10 10:00] VITALS: BP 129/103
[2023-03-10 10:15] VITALS: BP 116/103
[2023-03-10 10:30] VITALS: BP 136/107
[2023-03-10] MEDS ORDERED: CLOP75 PO (10:31)
--- NOTE | 2023-03-10 12:43 | NUR ---
PT TR BAND FULLY DEFLATED. NO BLEEDING OR HEMATOMA NOTED. VSS. NADN. CALL LIGHT WITHIN REACH.
[2023-03-10 12:48] VITALS: BP 135/98
--- NOTE | 2023-03-10 13:00 | NUR ---
PT TR BAND REMOVED. DOT DRESSING AND SPLINT APPLIED TO R RADIAL. NO BLEEDING OR HEMATOMA NOTED.
--- NOTE | 2023-03-10 13:30 | NUR ---
PT DRESSES SELF WITHOUT DIFF. VSS. NADN. PT VERBALIZES UNDERSTANDING WRITTEN AND VERBAL INSTRUCTIONS. DENIES QUESTIONS OR CONCERNS. PT IV DC'D. CATH INTACT. PRESSURE DSG APPLIED. NO BLEEDING NOTED. PT DC TO HOME VIA WC BY FAMILY.
== END 2023-03-10 13:30 | disposition home or self-care (01) ==
LOC: MHTC 07:04
DX: I25.118 Atherosclerotic heart disease of native coronary artery with other forms of angina pectoris (principal); E11.22 Type 2 diabetes mellitus with diabetic chronic kidney disease; I12.9 Hypertensive chronic kidney disease with stage 1 through stage 4 chronic kidney disease, or unspecified chronic kidney disease; N18.9 Chronic kidney disease, unspecified; E78.5 Hyperlipidemia, unspecified; Z79.4 Long term (current) use of insulin
CPT/HCPCS: 76937; 82947; 85347; 93454; 99152; 99153; A9270; C1769; C1874; C1887; C1894; C9600; J1644; J2250; J3010; J3246; J7030; J7050; J7060; Q9967

== ENCOUNTER 2023-05-15 11:23 | Observation (INO) | payer MEDICARE ==
[~2023-05-15] VITALS: Ht 172.7 cm; Wt 93.0 kg
[~2023-05-15 11:23] MED LIST changes: +Aspir 8181 MG PO; +CLOP75 PO; +GEMTESA75 MG PO; +GUAI600T33 PO; +HUMULIN N100 UNIT/6 SC; +LOPE2C PO; +PRAVASTATIN SOD40 MG PO; +TAMS.4ER PO
[2023-05-15 12:12] LABS: BASOPHILS ABSOLUTE AUTO 0.08 K/mm3 (0.00-0.23); BASOPHILS PERCENT AUTO 1 % (0-2); EOSINOPHILS ABSOLUTE AUTO 0.11 K/mm3 (0.00-0.68); EOSINOPHILS PERCENT AUTO 2 % (0-6); Hematocrit 42.7 % (37.0-53.0); Hemoglobin 14.5 g/dL (13.5-17.5); IMMATURE GRAN ABSOLUTE AUTO 0.02 K/mm3 (0.00-0.10); IMMATURE GRAN PERCENT AUTO 0 % (0-1); LYMPHOCYTES ABSOLUTE AUTO 1.18 K/mm3 (0.84-5.20); LYMPHOCYTES PERCENT AUTO 20 % (21-46); MONOCYTES ABSOLUTE AUTO 0.41 K/mm3 (0.16-1.47); MONOCYTES PERCENT AUTO 7 % (4-13); Mean Corpuscular HGB 30.7 pg (26.0-34.0); Mean Corpuscular Volume 90 fL (80-100); Mean Platelet Volume 10.2 fL (9.1-12.4); NEUTROPHILS ABSOLUTE AUTO 4.06 K/mm3 (1.96-9.15); NEUTROPHILS PERCENT AUTO 69 % (41-73); Platelet Count 251 K/mm3 (150-400); RDW Coefficient Variation 15.1 % (11.7-14.2); RDW Standard Deviation 50.4 fL (35.1-46.3); Red Blood Cell Count 4.73 M/mm3 (4.30-5.90); White Blood Cell Count 5.86 K/mm3 (4.00-11.30)
[2023-05-15 12:48] LABS: Albumin, Blood 3.6 g/dL (3.4-5.0); Albumin/Globulin Ratio 1.1 (0.8-1.8); Bilirubin, Total 0.3 mg/dL (0.1-1.0); Bun/Creatinine Ratio 39.1 (12.0-20.0); Calcium, Blood 9.9 mg/dL (8.5-10.1); Creatinine, Blood 1.28 mg/dL (0.60-1.20); Globulin, Blood 3.2 g/dL (2.2-4.0); Total Protein, Blood 6.8 g/dL (6.4-8.2)
[2023-05-15] MEDS ORDERED: GABA300 PO (15:56)
[2023-05-15] MEDS ORDERED: Mucinex600 MG PO (15:57)
[2023-05-15] MEDS ORDERED: TRESIBA100 UNIT/2 SC (15:58)
[2023-05-15] MEDS ORDERED: NOVOLOG100 UNIT/2 INJ (15:59)
[2023-05-15 16:48] LABS: Source, Urine Clean Catch
[2023-05-15 17:01] LABS: Appearance, Urine Clear (Clear); Bilirubin, Urine Neg (Neg); Blood, Urine 1+ (Neg); Color, Urine Yellow (P-Yellow); Glucose Qualitative, Urine 1+ (Neg); Ketones, Urine Neg (Neg); Leukocyte Esterase, Urine Neg (Neg); Nitrite, Urine Neg (Neg); Protein, Urine 3+ (Neg); Specific Gravity, Urine 1.015 (1.003-1.022); Urobilinogen, Urine NORM (Normal)
[2023-05-15 17:01] LABS: Influenza A, PCR NEGATIVE (NEGATIVE); Influenza B, PCR NEGATIVE (NEGATIVE); Resp Syncytial Virus, PCR NEGATIVE (NEGATIVE); SARS-Cov-2 (COVID-19) PCR, MMC NEGATIVE (NEGATIVE)
[2023-05-15 17:08] LABS: Bacteria Rare /hpf; Squamous Epithelial Cells Rare /hpf (Few); White Blood Cells, Urine 0-2 /hpf (0-5)
[2023-05-15 21:53] VITALS: BP 147/76
[2023-05-16 02:13] LABS: BASOPHILS ABSOLUTE AUTO 0.08 K/mm3 (0.00-0.23); BASOPHILS PERCENT AUTO 2 % (0-2); EOSINOPHILS PERCENT AUTO 4 % (0-6); Hematocrit 39.4 % (37.0-53.0); Hemoglobin 13.5 g/dL (13.5-17.5); IMMATURE GRAN ABSOLUTE AUTO 0.01 K/mm3 (0.00-0.10); IMMATURE GRAN PERCENT AUTO 0 % (0-1); LYMPHOCYTES ABSOLUTE AUTO 1.39 K/mm3 (0.84-5.20); LYMPHOCYTES PERCENT AUTO 26 % (21-46); MONOCYTES ABSOLUTE AUTO 0.73 K/mm3 (0.16-1.47); MONOCYTES PERCENT AUTO 14 % (4-13); Mean Corpuscular HGB 30.6 pg (26.0-34.0); Mean Corpuscular HGB Conc 34.3 g/dL (31.5-36.5); Mean Corpuscular Volume 89 fL (80-100); Mean Platelet Volume 9.4 fL (9.1-12.4); NEUTROPHILS ABSOLUTE AUTO 2.98 K/mm3 (1.96-9.15); NEUTROPHILS PERCENT AUTO 55 % (41-73); Platelet Count 218 K/mm3 (150-400); RDW Coefficient Variation 14.9 % (11.7-14.2); RDW Standard Deviation 48.5 fL (35.1-46.3); Red Blood Cell Count 4.41 M/mm3 (4.30-5.90); White Blood Cell Count 5.39 K/mm3 (4.00-11.30)
[2023-05-16 02:37] LABS: Bun/Creatinine Ratio 34.4 (12.0-20.0); Calcium, Blood 9.9 mg/dL (8.5-10.1); Creatinine, Blood 1.25 mg/dL (0.60-1.20); Potassium, Blood 3.1 mmol/L (3.5-5.5)
[2023-05-16 03:26] VITALS: BP 120/69
--- NOTE | 2023-05-16 06:38 | NUR ---
SHIFT SUMMARY: PT IS ADMITTED FOR ANGINA WITH EFFORT AND IS A FULL CODE. IS ALERT AND ABLE TO MAKE NEEDS KNOWN. ADLs HAVE BEEN ONE PERSON STAND BY MAINLY FOR SAFETY. HAS NOT HAS ANY COMPLAINTS OF PAIN THIS SINCE COMING UP FROM THE ED.IV TO THE RIGHT AC IS PATENT WITH DRESSING THAT IS CDI. LOW K+ REPORTED TO MD WAS GIVEN A ONE TIME ORDER OF KCL 40 MEQ.
[2023-05-16 07:33] VITALS: BP 135/81
[2023-05-16 12:34] LABS: Magnesium, Blood 1.8 mg/dL (1.6-2.4); Potassium, Blood 3.3 mmol/L (3.5-5.5)
--- NOTE | 2023-05-16 12:57 | NUR ---
NOTE: NOTIFIED DR. ANNABELLE rendon PATIENT LAB RESULT DRAWN AT 1200 FOR K AND MAG. RECEIVED ORDER TO GIVE KCL 20 MEQ PO X1 NOW.
[2023-05-16] MEDS ORDERED: NOVOLOG FL100 UNIT/3 SC (13:04)
[2023-05-16] MEDS ORDERED: FLUO.1OPSU BOTHEYES (13:04)
[2023-05-16 15:33] VITALS: BP 129/80
--- NOTE | 2023-05-16 16:42 | NUR ---
SHIFT SUMMARY: PATIENT A/OX4, CALM, PLEASANT AND COOPERATIVE c CARE. PATIENT DENIES CP/PRESSURE, N/V, DIZZINESS AND GENERALIZED PAIN. PATIENT ON HEART HEALTHY DIET c BS ACHS. PATIENT HAS HOME MEDS SC INSULIN AND VERIFIED BY PHARMACY THIS PM. PATIENT HAS DEXCOM CONTINUES GLUCOSE MONITORING TO R ABDOMEN. PATIENT SELF ADMINISTERED 74 UNITS OF INSULIN (TRESIBA) VERIFIED BY 2 RN'S KYLE ARVIZU AND THIS RN AT 1400. PATIENT RECEIVED IV/PO KCL TODAY. PATIENT IS CONTINENCE OF BOWELS/BLADDER, USES URINAL AND AMBULATES TO BATHROOM c SBA. PATIENT IS EATING AND DRINKING WELL. VITAL SIGNS REVIEWED. PATIENT HAD 1 DAY STRESS TEST DONE TODAY c RESULT. PIV TO RAC SALINE LOCKED. CALL LIGHT IN REACH.
--- NOTE | 2023-05-16 19:11 | NUR ---
DISCHARGE NOTE: PATIENT RECEIVED IV MAGSULFATE AND 80 MEQ PO KDUR. PATIENT DISCHARGE HOME. DISCHARGE INSTRUCTION PACKET GIVEN TO PATIENT. EDUCATE PATIENT REGARDING ADMITTING DX'S OF ANGINA OF EFFORT, S/S, TX, MEDICATIONS AND TO FOLLOW UP c PCP. PATIENT VERBALIZED UNDERSTANDING AND NO FURTHER QUESTIONS. RX WAS FAXED TO PATIENT PREFERRED PHARMACY ([facility]). ALL PATIENT PERSONAL BELONGINGS WERE SENT HOME c THE PATIENT. PATIENT WAS OFFERED WHEELCHAIR FOR TRANSPORT, BUT DECLINE, PER PATIENT "I WANT TO WALK I HAVE BEEN LAYING AND SITTING IN THIS BED SINCE I GOT HERE BUT THANK YOU FOR OFFERRING." PATIENT LEFT THE ROOM AT 1858 AND ACCOMPANIED BY SPOUSE AND GRANDAUGHTER.
[2023-05-20 19:25] LABS: MYELOPEROXIDASE (MPO) AB,IGG 0 AU/mL (0-19); SERINE PROTEINASE 3 PR3 AB,IGG 44 AU/mL (0-19)
[2023-05-21 23:32] LABS: ANCA IFA PATTERN None Detected (None Detected); ANCA IFA TITER <1:20 (<1:20)
== END 2023-05-16 18:55 | disposition home or self-care (01) ==
LOC: ER 11:23 → MEDS 11:24 → ERHOLD 11:24 → MEDS 21:41
PROVIDERS: Internal Medicine Nephrology; Physician Assistant; Student in an Organized Health Care Education/Training Program; ADMIT Hospitalist
DX: I25.119 Atherosclerotic heart disease of native coronary artery with unspecified angina pectoris (principal); N18.32 Chronic kidney disease, stage 3b; I42.2 Other hypertrophic cardiomyopathy; I12.9 Hypertensive chronic kidney disease with stage 1 through stage 4 chronic kidney disease, or unspecified chronic kidney disease; E11.22 Type 2 diabetes mellitus with diabetic chronic kidney disease; E11.42 Type 2 diabetes mellitus with diabetic polyneuropathy; M31.30 Wegener's granulomatosis without renal involvement; Z20.822 Contact with and (suspected) exposure to COVID-19; E86.9 Volume depletion, unspecified; E87.6 Hypokalemia
CPT/HCPCS: 0241U; 36415; 71046; 76770; 78452; 80048; 80053; 81001; 82947; 83516; 83690; 83735; 83880; 84132; 84484; 85025; 86036; 93005; 93010; 93017; 96365; 96372; 96375; 99285-25; A9270; A9500; G0378; J0706; J1650; J2785; J3475; J3480; J7050; J7512

== ENCOUNTER → 2024-02-16 | Outpatient (CLI) | payer MEDICARE ==
[~2024-02-16] MED LIST changes: +FLUO.1OPSU BOTHEYES; +Mucinex600 MG PO; +NOVOLOG FL100 UNIT/3 SC; +NOVOLOG100 UNIT/2 INJ; +TRESIBA100 UNIT/2 SC
== END ==
LOC: LAB SHORT 16:17 → LAB 16:17
DX: N39.0 Urinary tract infection, site not specified (principal)
CPT/HCPCS: 87077; 87086; 87186

== ENCOUNTER 2024-04-01 10:00 | Day surgery (SDC) | payer MEDICARE ==
[~2024-04-01] VITALS: Ht 172.7 cm; Wt 96.0 kg
[~2024-04-01 10:00] MED LIST changes: +Lactated Ringer's 1,000 ML IV ONE
[2024-04-01] MEDS ORDERED: METO25ER (10:52)
[2024-04-01] MEDS ORDERED: POTCHL20ER (10:53)
[2024-04-01] MEDS ORDERED: Lactated Ringer's 1,000 ML IV ONE (11:33)
[2024-04-01] MEDS ORDERED: propofoL 50 ML IV ONE (11:55)
[2024-04-01 12:33] VITALS: BP 111/56
== END 2024-04-01 12:51 | disposition home or self-care (01) ==
LOC: ORSCSDS 10:00
PROVIDERS: Internal Medicine Gastroenterology
PROC: 0DJ08ZZ Inspection of Upper Intestinal Tract, Via Natural or Artificial Opening Endoscopic (ICD-10-PCS; principal; 2024-04-01 11:45)
DX: K75.81 Nonalcoholic steatohepatitis (NASH) (principal); I85.00 Esophageal varices without bleeding; K74.60 Unspecified cirrhosis of liver; E11.9 Type 2 diabetes mellitus without complications; E11.22 Type 2 diabetes mellitus with diabetic chronic kidney disease; I25.10 Atherosclerotic heart disease of native coronary artery without angina pectoris; I12.9 Hypertensive chronic kidney disease with stage 1 through stage 4 chronic kidney disease, or unspecified chronic kidney disease; N18.9 Chronic kidney disease, unspecified; F32.A Depression, unspecified; M31.30 Wegener's granulomatosis without renal involvement; Z87.891 Personal history of nicotine dependence; Z79.02 Long term (current) use of antithrombotics/antiplatelets; Z79.4 Long term (current) use of insulin; Z79.899 Other long term (current) drug therapy
CPT/HCPCS: 82947; J2704; J7120

== ENCOUNTER 2024-06-21 07:15 | Day surgery (SDC) | payer MEDICARE, BC ==
[~2024-06-21] VITALS: Ht 172.7 cm; Wt 96.0 kg
[~2024-06-21 07:15] MED LIST changes: +ACET500 PO; +ALBU2.5V5 INH; +FORMOTEROL20 MCG/21 NEB; -Lactated Ringer's 1,000 ML IV ONE; +METO25ER PO; +NASAL SPRAY88 ML; +NS 500 ML IV ONE; +PULMICORT0.5 MG/21 NEB
[2024-06-21] MEDS ORDERED: CeFAZolin Sodium 2,000 MG VIAL ONE (07:44)
[2024-06-21] MEDS ORDERED: NS 500 ML IV ONE (08:20)
--- NOTE | 2024-06-21 08:40 | NUR ---
06/21/24 0840 Faith Betancur TIME OUT PERFORMED AT BEDSIDE WITH DR HURTADO AT 0831 IMMEDIATELY PRIOR TO INJECTION OF 8ML OF SOLUTION CONSISTING OF 9ML 1% LIDOCAINE WITH EPI 1:[id number] AND 1ML 8.4% SODIUM BICARBONATE. PT TOLERATED PROCEDURE WELL.
[2024-06-21] MEDS ORDERED: Midazolam HCl 1MG / ML 2ML Vial ONE (09:11)
[2024-06-21 09:38] VITALS: BP 155/77
--- NOTE | 2024-06-21 10:09 | NUR ---
06/21/24 1009 Ban Sung D/Lela INSTRUCTIONS GIVEN TO PT & PT'S , UNDERSTANDING VERBALIZED. PT DENIES PAIN/NAUSEA, VSS, ON RA. PT HAS ALL BELONGINGS, INCLUDING WALKING STICK & PT PLACED WATCH ON SELF. PT'S HAS OTHER BELONGINGS. PT WHEELED TO BATHROOM & VOIDED. PT THEN WHEELED TO PRIVATE VEHICLE, STEADY GAIT NOTED UPON AMBULATION FROM WC TO VEHICLE. PT HAS ICE PACK W/ HIM. NO VISIBLE SIGNS OF DISTRESS NOTED.
== END 2024-06-21 10:05 | disposition home or self-care (01) ==
LOC: ORSCSDS 07:15
PROVIDERS: Orthopaedic Surgery
PROC: 01N54ZZ Release Median Nerve, Percutaneous Endoscopic Approach (ICD-10-PCS; principal; 2024-06-21 09:00)
DX: G56.02 Carpal tunnel syndrome, left upper limb (principal); E11.22 Type 2 diabetes mellitus with diabetic chronic kidney disease; I12.9 Hypertensive chronic kidney disease with stage 1 through stage 4 chronic kidney disease, or unspecified chronic kidney disease; N18.30 Chronic kidney disease, stage 3 unspecified; E11.40 Type 2 diabetes mellitus with diabetic neuropathy, unspecified; F32.A Depression, unspecified; J45.909 Unspecified asthma, uncomplicated; K21.9 Gastro-esophageal reflux disease without esophagitis; E78.5 Hyperlipidemia, unspecified; K75.81 Nonalcoholic steatohepatitis (NASH); G47.33 Obstructive sleep apnea (adult) (pediatric); Z79.02 Long term (current) use of antithrombotics/antiplatelets; Z79.4 Long term (current) use of insulin; Z79.899 Other long term (current) drug therapy; Z87.891 Personal history of nicotine dependence
CPT/HCPCS: 82947; J0690; J2250; J7040

== ENCOUNTER 2025-02-07 07:56 | Day surgery (SDC) | payer MEDICARE, BC ==
[~2025-02-07] VITALS: Ht 172.7 cm; Wt 101.8 kg
[2025-02-07] MEDS ORDERED: CeFAZolin Sodium 2,000 MG VIAL ONE (08:06)
[2025-02-07] MEDS ORDERED: TRESIBA FL100 UNIT/2 (08:27)
--- NOTE | 2025-02-07 08:55 | NUR ---
02/07/25 0855 [facility] 0829: TIMEOUT FOR INJECTION. 5 CC INJECTED OF MIX OF 9 CC LIDOCAINE 1% WITH EPI 1:100,000 WITH 1 CC SODIUM BICARB. PT TOLERATED WELL.
[2025-02-07] MEDS ORDERED: NS 500 ML IV ONE (08:56)
[2025-02-07] MEDS ORDERED: Midazolam HCl 1MG / ML 2ML Vial ONE (09:08)
[2025-02-07 10:41] VITALS: BP 154/95
--- NOTE | 2025-02-07 10:42 | NUR ---
02/07/25 1042 Quintin Morocho PT DOING WELL SEE DISCHARGE NOTE
== END 2025-02-07 10:36 | disposition home or self-care (01) ==
LOC: ORSCSDS 07:56
PROVIDERS: Orthopaedic Surgery
PROC: 0LN80ZZ Release Left Hand Tendon, Open Approach (ICD-10-PCS; principal; 2025-02-07 09:15)
DX: M65.312 Trigger thumb, left thumb (principal); E11.22 Type 2 diabetes mellitus with diabetic chronic kidney disease; I12.9 Hypertensive chronic kidney disease with stage 1 through stage 4 chronic kidney disease, or unspecified chronic kidney disease; N18.30 Chronic kidney disease, stage 3 unspecified; J45.909 Unspecified asthma, uncomplicated; E78.5 Hyperlipidemia, unspecified; K21.9 Gastro-esophageal reflux disease without esophagitis; G47.33 Obstructive sleep apnea (adult) (pediatric); K75.81 Nonalcoholic steatohepatitis (NASH); Z79.4 Long term (current) use of insulin; Z79.02 Long term (current) use of antithrombotics/antiplatelets; Z79.899 Other long term (current) drug therapy; Z87.891 Personal history of nicotine dependence
CPT/HCPCS: 82947; J0690; J2250; J2704; J7040

== ENCOUNTER 2025-03-10 07:55 | Day surgery (SDC) | payer MEDICARE, BC ==
[~2025-03-10] VITALS: Ht 175.3 cm; Wt 102.1 kg
[~2025-03-10 07:55] MED LIST changes: -NS 500 ML IV ONE; +TRESIBA FL100 UNIT/2
[2025-03-10] MEDS ORDERED: METOPROLOL SUCC25 MG (08:49)
[2025-03-10] MEDS ORDERED: PLAVIX75 MG (08:50)
[2025-03-10] MEDS ORDERED: [UNRECOGNIZED DRUG - SUPPLY] (08:51)
--- NOTE | 2025-03-10 10:41 | NUR ---
03/10/25 1041 Juan Diego Guerra7 CHECKED ON PT. PT DENIES NEEDS AT THIS TIME. PT AND HIS FAMILY AWARE OF HIS PROCEDURE DELAY.
[2025-03-10 12:01] VITALS: BP 120/104
== END 2025-03-10 12:21 | disposition home or self-care (01) ==
LOC: ORSCSDS 07:55
PROVIDERS: Internal Medicine Gastroenterology
PROC: 0DBL8ZX Excision of Transverse Colon, Via Natural or Artificial Opening Endoscopic, Diagnostic (ICD-10-PCS; principal; 2025-03-10 09:30)
DX: Z12.11 Encounter for screening for malignant neoplasm of colon (principal); D12.3 Benign neoplasm of transverse colon; Z86.0101 Personal history of adenomatous and serrated colon polyps; Z86.0102 Personal history of hyperplastic colon polyps; E78.5 Hyperlipidemia, unspecified; I12.9 Hypertensive chronic kidney disease with stage 1 through stage 4 chronic kidney disease, or unspecified chronic kidney disease; E11.22 Type 2 diabetes mellitus with diabetic chronic kidney disease; N18.30 Chronic kidney disease, stage 3 unspecified; J45.909 Unspecified asthma, uncomplicated; I25.10 Atherosclerotic heart disease of native coronary artery without angina pectoris; E66.9 Obesity, unspecified; Z68.33 Body mass index [BMI] 33.0-33.9, adult; Z79.02 Long term (current) use of antithrombotics/antiplatelets; Z79.4 Long term (current) use of insulin; Z79.899 Other long term (current) drug therapy; Z87.891 Personal history of nicotine dependence; K57.30 Diverticulosis of large intestine without perforation or abscess without bleeding; K64.8 Other hemorrhoids
CPT/HCPCS: 82947; 88305; J2704; J7120